=== PATIENT | male | born 1995 | race Caucasian/White ===

== ENCOUNTER → 2018-12-18 | Outpatient (CLI) | payer BC ==
[2018-12-18 12:14] LABS: T4 (THYROXINE) 11.7 mcg/dL (4.5-12.1)
== END | disposition home or self-care (01) ==
LOC: LAB 11:28
PROVIDERS: ATTEND Internal Medicine Cardiovascular Disease
DX: R00.2 Palpitations (principal); R35.8 Other polyuria
CPT/HCPCS: 36415; 84436; 84481